=== PATIENT | female | born 1955 | race Caucasian/White ===

== ENCOUNTER → 2017-12-28 | Outpatient (CLI) | payer MEDICARE ==
[~2017-12-28] MED LIST: 1ST TIER UNILE1 EAC1 SUBQ; ACTEMRA400 MG/20 IV; ADVAIR 500-501 EACH INH; ALBUTEROL INH IH; ALINIA 500 MG500 M1 PO; ARAVA20 MG; ARAVA20 MG PO; ARIXTRA; ASPIRIN325 PO; ASPIRIN81 M2 PO; AZITHROMYCIN PO; BENADRYL ALLERG25 MG PO; BENTYL10 MG PO; CALTRATE 600600 MG PO; CARAFATE 1 GM TA1 G1 PO; CELEBREX 200 M200 M1 PO; CELEXA40 MG PO; CIPROFLOXACIN500 M1 PO; COLACE100 MG PO; DIPHENHIST25 MG PO; FISH OIL 1,001000 M2 PO; FOLIC ACID 1 MG1 MG PO; FOLIC ACID1 MG OR; GLUCOTROL5 MG PO; HYDROCODON-ACE1 EAC7 PO; HYDROXYCHLOROQ200 M1; IRON325 PO; LEVAQUIN 500 M500 M2 PO; LEVEMIR FL100 UNIT/2 SUBQ; LIPITOR40 MG PO; LOSARTAN POTASS50 MG PO; METAMUCIL PACK1 EACH PO; METFORMIN HCL500 MG PO; METHOTREXATE 22.5 MG PO; MIRALAX17 GM PO; MOBIC7.5 M1 PO; NABUMETONE 750750 M1 PO; NEURONTIN 300300 M1 PO; NORCO 5-325 TA1 EACH PO; NORTRIPTYLINE H10 M1 PO; NORTRIPTYLINE H10 M2 PO; NORVASC 2.5 MG2.5 M1 PO; NORVASC 5 MG TAB5 MG PO; OMEPRAZOLE40 MG OR; OMEPRAZOLE40 MG PO; ORENCIA; OXYCODONE HCL 55 MG PO; OXYIR 5 MG CAPSU5 M1 PO; PERCOCET 5-3251 EACH PO; PERCOCET PO; PREDNISONE 20 M20 M1 PO; PREMPRO 0.625-1 EACH PO; RANITIDINE 150150 MG PO; RELAFEN750 MG OR; ROBAXIN 750 MG750 M1 PO; SIMVASTATIN40 MG PO; SIMVASTATIN80 MG PO; SPIRONOLACTONE50 MG PO; SYMBICORT160 MCG/4. IH; TRAMADOL 50 MG50 MG PO; TUMS PO; TYLENOL325 MG PO; VITAMIN D32000 UNIT PO; VITAMIN D400 UNI1 PO; VITAMIN E400 UNIT PO; XANAX 0.5 MG0.5 M1 PO; XANAX 0.5 MG0.5 MG PO; XANAX XR1 MG PO; XARELTO10 MG PO; ZANTAC 150MG T150 M1 PO; ZANTAC 150MG T150 MG PO; ZANTAC 7575 MG PO; ZANTAC PO; ZOFRAN4 MG PO; ZOLOFT100 MG PO; [UNRECOGNIZED DRUG - REMARK] IM
[2017-12-28 10:13] LABS: PROTIME 10.2 Seconds (9.20-11.50)
[2017-12-28 10:21] LABS: ALBUMIN 4.2 g/dL (3.4-5.0); CALCIUM 8.6 mg/dL (8.5-10.1); CREATININE 0.9 mg/dL (0.6-1.3); POTASSIUM 4.4 mmol/L (3.5-5.1); TOTAL BILIRUBIN 0.5 mg/dL (<0.1-1.0); TOTAL PROTEIN 7.3 g/dL (6.4-8.2)
== END ==
LOC: M.LAB 09:30 → M.CT 09:40
PROVIDERS: Nurse Practitioner Adult Health
DX: K76.0 Fatty (change of) liver, not elsewhere classified (principal); M51.36 Other intervertebral disc degeneration, lumbar region; M51.37 Other intervertebral disc degeneration, lumbosacral region; M12.88 Other specific arthropathies, not elsewhere classified, other specified site; E11.9 Type 2 diabetes mellitus without complications; I10 Essential (primary) hypertension; J44.9 Chronic obstructive pulmonary disease, unspecified; I25.10 Atherosclerotic heart disease of native coronary artery without angina pectoris; M06.9 Rheumatoid arthritis, unspecified; R93.2 Abnormal findings on diagnostic imaging of liver and biliary tract; Z78.0 Asymptomatic menopausal state; Z79.899 Other long term (current) drug therapy; K75.81 Nonalcoholic steatohepatitis (NASH)

== ENCOUNTER 2018-01-31 14:18 | Emergency (ER) | payer MEDICARE ==
[~2018-01-31] VITALS: Ht 165.1 cm; Wt 104.3 kg
[~2018-01-31 14:18] MED LIST changes: -ACTEMRA400 MG/20 IV; -CIPROFLOXACIN500 M1 PO
[2018-01-31] MEDS ORDERED: ACTEMRA400 MG/20 IV (14:37)
[2018-01-31] MEDS ORDERED: HYDROCODON-ACE1 EAC7 PO (14:37)
[2018-01-31 14:58] LABS: ABSOLUTE BASOPHILS 0.1 thou/uL (0.0-0.2); ABSOLUTE EOSINOPHILS 0.2 thou/uL (0.0-0.7); ABSOLUTE NEUTROPHILS 4.3 thou/uL (1.6-8.1); BASOPHILS 0.8 %; EOSINOPHILS 3.1 %; HEMATOCRIT 43.7 % (37.0-47.0); LYMPHOCYTES 15.7 %; MCH 32.9 pg (26.0-34.0); MCHC 34.5 g/dL (28.0-37.0); MCV 95.6 fL (80.0-100.0); MONOCYTES 15.7 %; MPV 8.1 fl. (7.2-11.1); NUCLEATED RBCS 0 /100WBC; PLATELET COUNT* 149 thou/uL (150-400); POLYS 64.7 %; RBC 4.57 mil/uL (4.20-5.00); RDW-CV 12.8 % (10.5-14.5); WBC 6.6 thou/uL (4.0-11.0)
[2018-01-31 15:10] LABS: ANION GAP 8 mmol/L (7-16); BUN 28 mg/dL (7-18); CALCIUM 9.2 mg/dL (8.5-10.1); CHLORIDE 101 mmol/L (98-107); CO2 27 mmol/L (21-32); GLUCOSE 113 mg/dL (70-99); POTASSIUM 3.8 mmol/L (3.5-5.1); SODIUM 136 mmol/L (136-145)
[2018-01-31 15:16] LABS: ALBUMIN 4.4 g/dL (3.4-5.0); ALKALINE PHOSPHATASE 101 U/L (46-116); LIPASE 153 U/L (73-393); SGOT 30 U/L (15-37); SGPT 54 U/L (30-65); TOTAL BILIRUBIN 0.7 mg/dL (<0.1-1.0); TOTAL PROTEIN 7.6 g/dL (6.4-8.2); TROPONIN-I LEVEL <0.06 ng/mL (<0.06)
[2018-01-31 16:16] LABS: URINE BILIRUBIN NEGATIVE (Negative); URINE BLOOD NEGATIVE (Negative); URINE CLARITY CLEAR; URINE COLOR YELLOW; URINE GLUCOSE-RANDOM NEGATIVE (Negative); URINE KETONES NEGATIVE (Negative); URINE LEUKOCYTES-REFLEX TRACE (Negative); URINE NITRITE-REFLEX NEGATIVE (Negative); URINE PROTEIN NEGATIVE (Negative); URINE SPECIFIC GRAVITY <= 1.005 (1.005-1.030); URINE UROBILINOGEN 0.2 E.U./dl (0.2-1.0)
[2018-01-31 16:22] LABS: SQUAMOUS >10 Many /LPF (0-3); URINE WBC-REFLEX >25 Many /HPF (0-5)
[2018-01-31 16:23] LABS: BACTERIA-REFLEX 1-9 Few /HPF (None Seen); CASTS None Seen /LPF (None Seen); CRYSTALS None Seen /LPF (None Seen); URINE RBC 0-2 Rare /HPF (0-2)
[2018-01-31] MEDS ORDERED: PERCOCET 5-3251 EACH PO (16:32)
[2018-01-31] MEDS ORDERED: CIPROFLOXACIN500 M1 PO (16:32)
[2018-01-31 16:44] VITALS: BP 120/40
--- NOTE | 2018-02-01 11:55 | EKG ---
[place] [address] ELECTROCARDIOGRAM REPORT Name: TERESA FRANCISCONE Laura [id number] Admission: 01/31/18 Attend Phys: Discharge: 01/31/18 Date of : 53 Report #: [id number] THIS REPORT FOR: //name// [facility] ED Test Date: 2018-01-31 Test Time: 15:04:02 Pat Name: ZEINA FRANCISCO Department: Room: Gender: F Night Shift: SMILEY : 1955 Requested By: Blu Mann Order Number: [id number] MD: Cristofer Martinez Measurements Intervals [place] Rate: 76 P: -25 WI: 184 QRS: 115 QRSD: 148 T: -10 QT: 409 QTc: 460 Interpretive Statements Sinus rhythm RBBB and LPFB Compared to ECG 07/23/2016 16:35:52 Left posterior fascicular block now present Right bundle-branch block now present Left-axis deviation no longer present Electronically Signed On 02-01-2018 11:55:10 CDT by Cristofer Martinez [email or web address] <ELECTRONICALLY SIGNED> By: Cristofer Martinez MD, FACC 02/01/18 1155 1504 1504 Cristofer Martinez MD, FAC /EPI
== END 2018-01-31 16:45 | disposition home or self-care (01) ==
LOC: M.ERS 14:18
PROVIDERS: Family Medicine
DX: N12 Tubulo-interstitial nephritis, not specified as acute or chronic (principal); R19.7 Diarrhea, unspecified; E11.9 Type 2 diabetes mellitus without complications; M06.9 Rheumatoid arthritis, unspecified; I10 Essential (primary) hypertension; Z90.710 Acquired absence of both cervix and uterus; Z88.0 Allergy status to penicillin; Z88.6 Allergy status to analgesic agent; Z88.2 Allergy status to sulfonamides; Z88.8 Allergy status to other drugs, medicaments and biological substances

== ENCOUNTER 2018-07-22 10:48 | Emergency (ER) | payer MEDICARE ==
[~2018-07-22] VITALS: Ht 165.1 cm; Wt 102.5 kg
[~2018-07-22 10:48] MED LIST changes: +ACTEMRA400 MG/20 IV; +CIPROFLOXACIN500 M1 PO
[2018-07-22 11:37] LABS: ABSOLUTE EOSINOPHILS 0.3 thou/uL (0.0-0.7); ABSOLUTE LYMPHOCYTES 1.7 thou/uL (0.8-5.3); ABSOLUTE MONOCYTES 0.7 thou/uL (0.0-1.2); ABSOLUTE NEUTROPHILS 3.9 thou/uL (1.6-8.1); BASOPHILS 0.6 %; EOSINOPHILS 4.2 %; HEMATOCRIT 41.4 % (37.0-47.0); HEMOGLOBIN 14.3 gm/dL (12.0-15.0); LYMPHOCYTES 25.8 %; MCH 32.2 pg (26.0-34.0); MCHC 34.6 g/dL (28.0-37.0); MCV 93.1 fL (80.0-100.0); MONOCYTES 10.4 %; NUCLEATED RBCS 0 /100WBC; PLATELET COUNT* 203 thou/uL (150-400); RBC 4.45 mil/uL (4.20-5.00); RDW-CV 12.6 % (10.5-14.5); WBC 6.7 thou/uL (4.0-11.0)
[2018-07-22 11:39] LABS: URINE BILIRUBIN NEGATIVE (Negative); URINE BLOOD NEGATIVE (Negative); URINE CLARITY CLEAR; URINE COLOR YELLOW; URINE GLUCOSE-RANDOM NEGATIVE (Negative); URINE KETONES NEGATIVE (Negative); URINE LEUKOCYTES-REFLEX NEGATIVE (Negative); URINE NITRITE-REFLEX NEGATIVE (Negative); URINE PROTEIN NEGATIVE (Negative); URINE UROBILINOGEN 0.2 E.U./dl (0.2-1.0)
[2018-07-22 11:49] LABS: ALBUMIN 4.4 g/dL (3.4-5.0); CALCIUM 9.8 mg/dL (8.5-10.1); POTASSIUM 4.4 mmol/L (3.5-5.1); TOTAL BILIRUBIN 0.4 mg/dL (<0.1-1.0); TOTAL PROTEIN 7.3 g/dL (6.4-8.2)
[2018-07-22 14:53] VITALS: BP 161/69
== END 2018-07-22 14:54 | disposition home or self-care (01) ==
LOC: M.ERS 10:48
PROVIDERS: Nurse Practitioner Family
DX: R19.7 Diarrhea, unspecified (principal); R10.84 Generalized abdominal pain; M06.9 Rheumatoid arthritis, unspecified; I10 Essential (primary) hypertension; E11.9 Type 2 diabetes mellitus without complications; Z88.0 Allergy status to penicillin; Z90.710 Acquired absence of both cervix and uterus; Z98.890 Other specified postprocedural states; Z88.2 Allergy status to sulfonamides; Z88.5 Allergy status to narcotic agent; Z88.8 Allergy status to other drugs, medicaments and biological substances

== ENCOUNTER → 2018-12-12 | Outpatient (CLI) | payer MEDICARE ==
[2018-12-12 10:18] LABS: ALBUMIN 4.8 g/dL (3.4-5.0); CALCIUM 9.5 mg/dL (8.5-10.1); POTASSIUM 4.5 mmol/L (3.5-5.1); PROTIME 10.5 Seconds (9.20-11.50); TOTAL BILIRUBIN 0.4 mg/dL (<0.1-1.0); TOTAL PROTEIN 7.7 g/dL (6.4-8.2)
== END ==
LOC: M.ULTRA 09:00
PROVIDERS: Nurse Practitioner Adult Health
DX: Z12.31 Encounter for screening mammogram for malignant neoplasm of breast (principal); K76.0 Fatty (change of) liver, not elsewhere classified; K75.81 Nonalcoholic steatohepatitis (NASH); K21.9 Gastro-esophageal reflux disease without esophagitis; R16.0 Hepatomegaly, not elsewhere classified; Z90.49 Acquired absence of other specified parts of digestive tract

== ENCOUNTER → 2019-01-19 | Outpatient (CLI) | payer MEDICARE | LOC: M.RAD 15:26 | DX: M84.377D Stress fracture, right toe(s), subsequent encounter for fracture with routine healing (principal); M24.674 Ankylosis, right foot; X58.XXXD Exposure to other specified factors, subsequent encounter ==

== ENCOUNTER → 2019-10-20 | Outpatient (CLI) | payer MEDICARE | LOC: M.RAD 15:49 | PROVIDERS: ATTEND Family Medicine | DX: M47.816 Spondylosis without myelopathy or radiculopathy, lumbar region (principal); M51.36 Other intervertebral disc degeneration, lumbar region; M54.31 Sciatica, right side ==

== ENCOUNTER → 2019-11-13 | Outpatient (CLI) | payer MEDICARE ==
[~2019-11-13] MED LIST changes: +ALPRAZOLAM XR3 MG PO; +CALCITRATE200 MG PO; +CRANBERRY450 M1 PO; +FOLIC ACID1 MG PO; +JARDIANCE25 MG PO; +LORCET 5-325 M1 EACH PO; +NEURONTIN300 MG PO
== END ==
LOC: M.PC 04:36
PROVIDERS: ATTEND Physical Medicine & Rehabilitation
DX: M51.16 Intervertebral disc disorders with radiculopathy, lumbar region (principal); M96.1 Postlaminectomy syndrome, not elsewhere classified; M79.604 Pain in right leg; M47.26 Other spondylosis with radiculopathy, lumbar region; Z88.8 Allergy status to other drugs, medicaments and biological substances; Z79.899 Other long term (current) drug therapy

== ENCOUNTER → 2019-12-25 | Outpatient (CLI) | payer MEDICARE, OTHER | LOC: M.PC 11:10 | PROVIDERS: ATTEND Physical Medicine & Rehabilitation | DX: M51.16 Intervertebral disc disorders with radiculopathy, lumbar region (principal); M96.1 Postlaminectomy syndrome, not elsewhere classified; M47.26 Other spondylosis with radiculopathy, lumbar region; T84.038A Mechanical loosening of other internal prosthetic joint, initial encounter; M79.604 Pain in right leg; Z98.1 Arthrodesis status ==

== ENCOUNTER → 2019-12-27 | Outpatient (CLI) | payer MEDICARE, OTHER | LOC: M.PC 09:03 | PROVIDERS: ATTEND Physical Medicine & Rehabilitation | DX: M47.26 Other spondylosis with radiculopathy, lumbar region (principal); M79.604 Pain in right leg; M96.1 Postlaminectomy syndrome, not elsewhere classified; T84.038A Mechanical loosening of other internal prosthetic joint, initial encounter; M51.16 Intervertebral disc disorders with radiculopathy, lumbar region; Z79.899 Other long term (current) drug therapy ==

== ENCOUNTER → 2020-01-03 | Outpatient (CLI) | payer MEDICARE, OTHER | END | disposition home or self-care (01) | LOC: M.PC 12:53 | PROVIDERS: ATTEND Physical Medicine & Rehabilitation | DX: M47.816 Spondylosis without myelopathy or radiculopathy, lumbar region (principal); E11.9 Type 2 diabetes mellitus without complications; Z87.440 Personal history of urinary (tract) infections; Z79.899 Other long term (current) drug therapy ==

== ENCOUNTER → 2020-01-15 | Outpatient (CLI) | payer MEDICARE, OTHER | LOC: M.PC 09:00 | PROVIDERS: ATTEND Physical Medicine & Rehabilitation | DX: M51.16 Intervertebral disc disorders with radiculopathy, lumbar region (principal); M54.5 Low back pain; M47.26 Other spondylosis with radiculopathy, lumbar region; M79.604 Pain in right leg ==

== ENCOUNTER → 2020-05-24 | Outpatient (CLI) | payer MEDICARE, OTHER | LOC: M.RAD 13:26 | PROVIDERS: ATTEND Neurological Surgery | DX: M43.26 Fusion of spine, lumbar region (principal); Z98.1 Arthrodesis status ==

== ENCOUNTER 2020-10-12 15:26 | Emergency (ER) | payer MEDICARE, OTHER ==
[~2020-10-12] VITALS: Ht 165.1 cm; Wt 105.2 kg
[2020-10-12 16:12] LABS: INFLUENZA A ANTIGEN Negative (Negative); INFLUENZA B ANTIGEN Negative (Negative)
[2020-10-12] MEDS ORDERED: PREDNISONE 10 M10 MG PO (16:35)
[2020-10-12] MEDS ORDERED: TESSALON PERLE100 M1 PO (16:35)
[2020-10-12] MEDS ORDERED: PROAIR HFA8.5 GM INH (16:35)
[2020-10-12 16:52] VITALS: BP 150/69
== END 2020-10-12 16:53 | disposition home or self-care (01) ==
LOC: M.ERS 15:26
PROVIDERS: Physician Assistant
DX: J40 Bronchitis, not specified as acute or chronic (principal); Z20.822 Contact with and (suspected) exposure to COVID-19; M06.9 Rheumatoid arthritis, unspecified; E11.9 Type 2 diabetes mellitus without complications; I10 Essential (primary) hypertension; K58.9 Irritable bowel syndrome, unspecified; Z88.0 Allergy status to penicillin; Z88.2 Allergy status to sulfonamides; Z88.5 Allergy status to narcotic agent; Z88.8 Allergy status to other drugs, medicaments and biological substances; Z90.89 Acquired absence of other organs; Z90.710 Acquired absence of both cervix and uterus